=== PATIENT | female | born 1985 | race Caucasian/White ===

== ENCOUNTER → 2016-10-07 | Outpatient (CLI) | payer BC ==
[~2016-10-07] MED LIST: VOLTAREN75 MG PO
[2016-10-07 09:00] LABS: HEMOGLOBIN 12.6 g/dL (12.2-16.2)
[2016-10-07 11:54] LABS: NEUTROPHILS 45 % (42-76)
== END ==
LOC: LAB 08:10
PROVIDERS: Nurse Practitioner Family
DX: D69.6 Thrombocytopenia, unspecified (principal)